=== PATIENT | male | born 1970 | race Caucasian/White ===

== ENCOUNTER 2024-03-30 14:31 | Outpatient (AMB) | payer OTHER, SELFPAY ==
--- NOTE | 2024-03-30 14:35 | HO.NEPHOV ---
Vital Signs 03/30/24 14:42 Height 5 ft 7.5 in Weight 314 lb 4 oz BMI 48.5 BP 114/80 Blood Pressure Location Rt brachial Position Sitting Pulse 95 Pulse Source Pulse Oximeter Pulse Oximetry (%) 97 Oxygen Delivery Method Room Air Intake Visit Reasons: May follow up / Confirmed Advertising Writer Required: No Accompanied by: Self / Same As Patient Allergies No Known Allergies Allergy (Verified 03/30/24 14:48) HPI Comments Details: I had the pleasure of seeing Isreal in follow up of his hypertension. In the past he had uncontrolled BP confirmed by a 24 hour BP monitor and was started on Chlorthalidone. His BP was better controlled on it & was tolerating the medications without any significant side effects. He has been on lexapro which has helped him. He denies any chest pain, SOB, PND, orthopnea, urinary symptoms or edema. He is on Ozempic now for weight loss. There were no other new complaints at the time of this office visit [facility] Medical History (Updated 03/30/24 @ 14:49 by Christal Mckeon MA) Hypertension Surgical History (Updated 03/30/24 @ 14:49 by Christal Mckeon MA) History of hernia repair Family History (Updated 03/30/24 @ 14:50 by Christal Mckeon MA) Father Cancer Mother Hypertension Social History Alcohol intake: current Comment: Rare Patient Tobacco Use Status: Never used Tobacco Physical Exam Const General: comfortable and no acute distress Orientation/consciousness: patient oriented x3 HEENT Head: Yes normocephalic Mouth: Normal oral and palatal mucosa present Eyes EOM: EOMs intact bilaterally Neck Neck: Yes supple Resp Auscultation: clear to auscultation bilaterally Cardio Jugular venous distension: no JVD Rate: regular rate GI Palpation (GI): Soft to palpation Auscultation: normal bowel sounds General: Yes no CVA tenderness Back/Spine/Pelvis Back: no CVA tenderness Skin General skin exam: no rashes or lesions noted Neuro General: patient oriented x3 and moves all extremities Extrem General: Yes no pedal edema Results Reviewed Nephrology Results: No Data to Display Assessment & Plan Assessment & Plan (1) Hypertension: Code(s): I10 - Essential (primary) hypertension Category: Medical Qualifiers: Hypertension type: primary hypertension Qualified Code(s): I10 - Essential (primary) hypertension Plan: Isreal has primary hypertension . It was confirmed by 24 hour BPM. He does not check his BP regularly at home. He has symptoms of PHILL which is better now. He does not consume excess alcohol. He has no H/O LVH, retinopathy, renal dysfunction or proteinuria. He should continue current dose of his anti hypertensive medication. I did not make any medication changes today. Follow up blood work ordered. Answered all questions Orders: Orders Creatinine Today I10 - Essential (primary) hypertension Electrolytes Today I10 - Essential (primary) hypertension Protein Creatinine Ratio, Ur Today I10 - Essential (primary) hypertension Blood Urea Nitrogen Today I10 - Essential (primary) hypertension Calcium Today I10 - Essential (primary) hypertension Coding Level of Care Code Est Pt Level 4 (01046) Diagnoses Primary hypertension I10 Hypertension type: primary hypertension
[2024-03-30 14:42] VITALS: BP 114/80; PULSE 95; O2SAT 97; BMI 48.5
== END 2024-03-30 15:17 | disposition home or self-care (01) ==
PROVIDERS: PCP Internal Medicine; Visit Provider Internal Medicine Nephrology
DX: I10 Essential (primary) hypertension (principal)
CPT/HCPCS: 99214

== ENCOUNTER → 2024-03-30 14:31 | Outpatient (BNVA) | payer OTHER, SELFPAY | PROVIDERS: PCP Internal Medicine; Visit Provider Internal Medicine Nephrology ==

== ENCOUNTER 2024-09-28 14:41 | Outpatient (AMB) | payer OTHER, SELFPAY ==
--- NOTE | 2024-09-28 14:45 | HO.NEPHOV_ITS ---
Vital Signs 09/28/24 14:47 Height 5 ft 7.5 in Weight 322 lb 2 oz BMI 49.7 BP 132/90 H Blood Pressure Location Lt brachial Position Sitting Pulse 95 Pulse Source Pulse Oximeter Pulse Oximetry (%) 95 Oxygen Delivery Method Room Air Intake Visit Reasons: 6 mon follow up-Conf Gaming Associate Required: No Accompanied by: Self / Same As Patient Allergies No Known Allergies Allergy (Verified 09/28/24 14:46) HPI Comments Details: Isreal was seen in follow up of his hypertension. In the past he had uncontrolled BP confirmed by a 24 hour BP monitor and was started on Chlorthalidone. His BP was better controlled on it & was tolerating the medications without any significant side effects. He has been on lexapro which has helped him. He denies any chest pain, SOB, PND, orthopnea, urinary symptoms or edema. He is on Ozempic now for weight loss. There were no other new complaints at the time of this office visit [facility] Medical History (Updated 03/30/24 @ 14:49 by Christal Mckeon MA) Hypertension Surgical History History of hernia repair Family History Father Cancer Mother Hypertension Social History Alcohol intake: current Comment: Rare Patient Tobacco Use Status: Never used Tobacco Review of Systems Const All systems reviewed & are unremarkable except as noted in HPI and below Physical Exam Vital Signs: Last Vital Signs Pulse 95 09/28/24 14:47 BP 132/90 H 09/28/24 14:47 Pulse Ox 95 09/28/24 14:47 Oxygen Delivery Method Room Air 09/28/24 14:47 BMI result Body Mass Index 49.7 Const General: comfortable and no acute distress Orientation/consciousness: patient oriented x3 HEENT Head: Yes normocephalic Mouth: Normal oral and palatal mucosa present Eyes EOM: EOMs intact bilaterally Neck Neck: Yes supple Resp Auscultation: clear to auscultation bilaterally Cardio Jugular venous distension: no JVD Rate: regular rate GI Palpation (GI): Soft to palpation Auscultation: normal bowel sounds General: Yes no CVA tenderness Back/Spine/Pelvis Back: no CVA tenderness Skin General skin exam: no rashes or lesions noted Neuro General: patient oriented x3 and moves all extremities Extrem General: Yes no pedal edema Results Reviewed Nephrology Results: No Data to Display Assessment & Plan Assessment & Plan (1) Hypertension: Code(s): I10 - Essential (primary) hypertension Category: Medical Qualifiers: Hypertension type: primary hypertension Qualified Code(s): I10 - Essential (primary) hypertension Plan Isreal has primary hypertension . It was confirmed by 24 hour BPM. He does not check his BP regularly at home. He has symptoms of PHILL which is better now. He does not consume excess alcohol. He has no H/O LVH, retinopathy, renal dysfunc tion or proteinuria. He should continue current dose of his anti hypertensive medication. I did not make any medication changes today. Follow up blood work ordered. Answered all questions Orders: Orders Protein Creatinine Ratio, Ur 6 Months I10 - Essential (primary) hypertension Creatinine 6 Months I10 - Essential (primary) hypertension Blood Urea Nitrogen 6 Months I10 - Essential (primary) hypertension Electrolytes 6 Months I10 - Essential (primary) hypertension Calcium 6 Months I10 - Essential (primary) hypertension Coding Level of Care Code Est Pt Level 4 (85394) Diagnoses Primary hypertension I10 Hypertension type: primary hypertension
[2024-09-28 14:47] VITALS: BP 132/90; PULSE 95; O2SAT 95; BMI 49.7
== END 2024-09-28 15:41 | disposition home or self-care (01) ==
LOC: HO.HKAS 14:41
PROVIDERS: PCP Internal Medicine; Visit Provider Internal Medicine Nephrology
DX: I10 Essential (primary) hypertension (principal)
CPT/HCPCS: 99214

== ENCOUNTER 2025-05-31 09:59 | Outpatient (AMB) | payer OTHER, SELFPAY ==
[2025-05-31 10:03] VITALS: BP 122/78; PULSE 80; O2SAT 95; BMI 47.2
--- NOTE | 2025-05-31 10:03 | HO.NEPHOV ---
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 In the past he had uncontrolled BP confirmed by a 24 hour BP monitor and was started on Chlorthalidone. His BP was better controlled on it & was tolerating the medications without any significant side effects. He denies any chest pain, SOB, PND, orthopnea, urinary symptoms or edema. There were no other new complaints at the time of this office visit [facility] Medical History (Updated 03/30/24 @ 14:49 by Christal Mckeon MA) Hypertension Surgical History History of hernia repair Family History Father Cancer Mother Hypertension Social History Alcohol intake: current Comment: Rare Patient Tobacco Use Status: Never used Tobacco Review of Systems Const All systems reviewed & are unremarkable except as noted in HPI and below Physical Exam Vital Signs: Last Vital Signs Pulse 80 05/31/25 10:03 BP 122/78 05/31/25 10:03 Pulse Ox 95 05/31/25 10:03 Oxygen Delivery Method Room Air 05/31/25 10:03 BMI result Body Mass Index 47.2 Const General: comfortable and no acute distress Orientation/consciousness: patient oriented x3 HEENT Head: Yes normocephalic Mouth: Normal oral and palatal mucosa present Eyes EOM: EOMs intact bilaterally Neck Neck: Yes supple Resp Auscultation: clear to auscultation bilaterally Cardio Jugular venous distension: no JVD Rate: regular rate GI Palpation (GI): Soft to palpation Auscultation: normal bowel sounds General: Yes no CVA tenderness Back/Spine/Pelvis Back: no CVA tenderness Skin General skin exam: no rashes or lesions noted Neuro General: patient oriented x3 and moves all extremities Extrem General: Yes no pedal edema Assessment & Plan Assessment & Plan (1) Hypertension: Code(s): I10 - Essential (primary) hypertension Category: Medical Qualifiers: Hypertension type: primary hypertension Qualified Code(s): I10 - Essential (primary) hypertension Plan Isreal has primary hypertension confirmed by 24 hour BPM. He does not check his BP regularly at home. He has symptoms of PHILL which is better now. He does not consume excess alcohol. He has no H/O LVH, retinopathy, renal dysfunction or proteinuria. He should continue current dose of his anti hypertensive medication. I did not make any medication changes today. Follow up blood work ordered. Answered all questions Orders: Orders Protein Creatinine Ratio, Ur 8 Months I10 - Essential (primary) hypertension Electrolytes 8 Months I10 - Essential (primary) hypertension Calcium 8 Months I10 - Essential (primary) hypertension Creatinine 8 Months I10 - Essential (primary) hypertension Blood Urea Nitrogen 8 Months I10 - Essential (primary) hypertension Medications: New chlorthalidone 25 mg PO DAILY 90 tabs 3RF Coding Level of Care Code Est Pt Level 4 (94760) Diagnoses Primary hypertension I10 Hypertension type: primary hypertension
--- OUTSIDE RECORDS SUMMARY | 2025-05-31 10:38 | XMS_ITS | Patient Health Record ---
[facility] Address [address] [place] [address] Care Team Providers Care Reflesher Name Role Phone Randall Bob MD Primary Care Provider Unavail able Black, Mary Unavailable [phone] Allergies Allergen (clinical drug ingredient) Drug/Non Drug Allergy documented on EMR Reaction Allergy Type Onset Date Status apple allergenic extract raw apples (uncoded) itchy mouth & throat Allergy Active strawberry allergenic extract strawberries (uncoded) itchy mouth & throat Allergy Active Reason For Referral No Information Medications Medication SIG (Take, Route, Frequency, Duration) Notes Start Date End Date Status Night Splint AFO - L1930 as directed 02/21/2019 Active Fiorinal 50-325-40 MG 1 capsule as neede d Orally every 4 hrs 02/20/2019 Active Social History Tobacco Use: Social History Observation Description Date Details (start date - stop date) Never Smoker NA - NA Tobacco Use/Smoking Question Answer Notes Are you a: nonsmoker Additional Findings: Tobacco Non-User Current no n-smoker Alcohol Screen Question Answer Notes Did you have a drink contain ing alcohol in the past year? Yes How often did you have a dri nk containing alcohol in the past year? Monthly or less (1 point) How many drinks did you have on a typical day when you were drinking in the past year? 1 or 2 drinks (0 point) How often did you have 6 or more drinks on one occasion in the past year? Never (0 point) Points 1 Interpretation Negative Tobacco use other than smoking: Question Answer Notes Are you an other tobacco user? No Problems No Known Problems Plan Of Treatment No Information Insurance Providers Payer Name Payer Address Payer Phone Subscriber Number Group Number Insured Name Patient Relationship to Insured Coverage Start Date Coverage End Date [facility] ([facility]) [address] [place] [id number] Shashi Merino Self - patient is the insured Medical (General) History Medical History History ICD Code Migraines Surgical History Surgery Date(Month/Year) hernia 11/2016
--- OUTSIDE RECORDS SUMMARY | 2025-05-31 10:38 | XMS_ITS | Clinical Summary ---
Author Organization [employer] [facility] Address [address] [place] [address] Care Team Providers Care Green Pipefitter Name Role Phone Unknown, Primary Care Provider Unavailabl e Social History Tobacco Use Types Packs/Day Years Used Date Smoking Tobacco: Never Assessed Sex and Gender Information Value Date Recorded Sex Assigned at Not on file Gender Identity Not on file Sexual Orientation Not on file Job Start Date Occupation Industry Not on file Not on file Not on file Plan of Treatment Health Maintenance Due Date Last Done Comments Hepatitis B Vaccines (1 of 3 - 3-dose series) 1969 Hepatitis C Screening 1969 COVID-19 Vaccine (#1) 03/25/1970 Depression Screening 1981 Preventative Health Evaluation 1987 DTap / Tdap / Td (1 - Tdap) 1988 Colon Cancer Screening (Colonoscopy) 2014 Shingrix-Zoster Vaccine (1 of 2) 2019 Influenza Vaccine (#1) 2025 Pneumococcal Vaccine Aged Out No long er eligible based on patient's age to complete this topic RSV Ped < 20 months Aged Out No longe r eligible based on patient's age to complete this topic Care Teams Green Pipefitter Relationship Specialty Start Date End Date Unknown, PCP - General 04/14/24
--- OUTSIDE RECORDS SUMMARY | 2025-05-31 10:38 | XMS_ITS | Clinical Summary ---
Author Organization [facility] Address [address] [facility] [address] [place] [address] Phone Care Team Providers Care Supply Chain Vice President Name Role Phone Randall Bob MD Primary Care Provider Allergies No known active allergies Medications Butalbital-APAP -Caffeine 50-300-40 MG capsule Take 1 capsule by mouth 1 (one) time each day Active escitalopram (LEXAPRO) 10 MG tablet Take 10 mg by mouth 1 (one) time each day 03/14/2023 Active chlorthalidone 25 MG tablet TAKE 1 TABLET BY MOUTH EVERY DAY 90 tablet 3 06/05/2024 Active Active Problems Problem Noted Date Diagnosed Date Hypertension 02/12/2022 Essential hypertension 03/19/2021 Family History Medical History Relation Comments Heart disease Father CABG Hypertension Father Hypertension Mother Relation Status Comments Father Mother Alive Social History Tobacco Use Types Packs/Day Years Used Date Smoking Tobacco: Never Smokeless Tobacco: Never Tobacco Cessation:Counseling Given: Not Answered Alcohol Use Standard Drinks/Week Comments No 0 (1 standard drink = 0.6 oz pur e alcohol) Sex and Gender Information Value Date Recorded Sex Assigned at Not on file Legal Sex Male 4:56 PM EST Gender Identity Not on file Sexual Orientation Not on file Last Filed Vital Signs Vital Sign Reading Time Taken Comments Blood Pressure 130/88 04/20/2023 3:53 PM EDT Pulse 103 02/12/2022 4:07 PM EDT Temperature - - Respiratory Rate - - Oxygen Saturation 97% 05/06/2021 1:38 PM EDT Inhaled Oxygen Concentration - - Weight 149 kg (329 lb) 04/20/2023 3:53 PM EDT Height 172.7 cm (5' 8 ) 03/11/2020 12:00 PM EDT Body Mass Index 50.02 03/11/2020 12:00 PM EDT Plan of Treatment Health Maintenance Due Date Last Done Comments Hepatitis B Vaccine (1 of 3 - 19+ 3-dose series) 09/25 Pneumococcal Vaccine: 50+ Years (1 of 2 - PCV) 988 Colorectal Cancer Screening: Annual FOBT 2018 Colorectal Cancer Screening: Colonoscopy 2018 Colorectal Cancer Screening: Sigmoidoscopy 2018 Influenza Vaccine (#1) 2025 Insurance [employer] Care Teams Supply Chain Vice President Relationship Specialty Start Date End Date Randall Bob MD [address] [facility] [place] [address] PCP - General 12/02/20
--- OUTSIDE RECORDS SUMMARY | 2025-05-31 10:38 | XMS_ITS | Clinical Summary ---
Author Organization [facility] Address [address] [place] [address] Phone Care Team Providers Care Wildlife Rehabilitator Name Role Phone Randall Bob MD Primary Care Provider [phone] Allergies Active Allergy Reactions Criticality Noted Date Comments Apple Hypersensitivity Low 09/29/2024 States mild tongue itching Ogema Itching Low 09/29/2024 Medications butalbital-acet aminophen-caffe ine 50-300-40 mg capsule Take 1 capsule by mouth 1 (one) time each day. Active chlorthalidone (HYGROTON) 25 mg tablet Take 1 tablet (25 mg total) by mouth 1 (one) time each day. 06/05/2024 Active escitalopram (LEXAPRO) 20 mg tablet Take 1 tablet (20 mg total) by mouth 1 (one) time each day. 07/10/2024 Active rosuvastatin (CRESTOR) 10 mg tablet Take 1 tablet (10 mg total) by mouth 1 (one) time each day. Active Active Problems Problem Noted Date Diagnosed Date Ventral hernia without obstruction or gangrene 1 11/29/2023 Surgical History Surgery Date Site/Laterality Comments HERNIA REPAIR Medical History Medical History Date Comments Depression Hypertension Hyperlipidemia Social History Tobacco Use Types Packs/Day Years Used Date Smoking Tobacco: Never Smokeless Tobacco: Never Tobacco Cessation:Counseling Given: Not Answered Alcohol Use Standard Drinks/Week Comments Yes 0 (1 standard drink = 0.6 oz pur e alcohol) Interpersonal Safety Answer Date Record ed Physical Abuse 12/11/2024 Verbal Abuse 12/11/2024 Sex and Gender Information Value Date Recorded Sex Assigned at Male 12/11/2024 10:08 AM EST Legal Sex Male 2:42 AM EST Gender Identity Male 12/11/2024 10:08 AM EST Sexual Orientation Straight 12/11/2024 10 :08 AM EST Obstetrics History Last Filed Vital Signs Vital Sign Reading Time Taken Comments Blood Pressure 138/86 01/12/2025 8:01 AM EST Pulse 86 01/12/2025 8:01 AM EST Temperature 36.2 C (97.1 F) 01/12/2025 8:01 AM EST Respiratory Rate 14 12/11/2024 3:08 PM EST Oxygen Saturation 94% 12/11/2024 3:10 PM EST Inhaled Oxygen Concentration - - Weight 147 kg (325 lb) 01/12/2025 8:01 AM EST Height 170.2 cm (5' 7 ) 01/12/2025 8:01 AM EST Body Mass Index 50.9 01/12/2025 8:01 AM EST Plan of Treatment Health Maintenance Due Date Last Done Comments DTaP,Tdap,and Td Vaccines (1 - Tdap) 1988 Hepatitis B Vaccines (1 of 3 - 19+ 3-dose series) 1988 Pneumococcal Vaccine: 50+ Years (1 of 1 - PCV) 2019 Zoster Vaccines (1 of 2) 2019 Cholesterol Screening (Lipid Panel) 06/20/2024 Depression Screening 06/20/2024 HIV Screening 06/20/2024 Hepatitis C Screening 06/20/2024 Social Influencers of Health Screening 06/20/2024 COVID-19 Vaccine (3 - 2023-2 5 season) 2024 12/31/2020, 12/03/2020 Hypertension/CHF/CAD Annual BMP Blood Test 09/29/2024 Influenza Vaccine (#1) 2025 Colorectal Cancer Screening: Colonoscopy 12/01/2034 12/01/2024 HIB Vaccines Aged Out No longer eligi ble based on patient's age to complete this topic HPV Vaccines Aged Out No longer eligi ble based on patient's age to complete this topic Hepatitis A Vaccines Aged Out No long er eligible based on patient's age to complete this topic IPV Vaccines Aged Out No longer eligi ble based on patient's age to complete this topic MMR Vaccines Aged Out No longer eligi ble based on patient's age to complete this topic Meningococcal ACWY Vaccine Aged Out N o longer eligible based on patient's age to complete this topic Meningococcal B Vaccine Aged Out No l onger eligible based on patient's age to complete this topic RSV Immunization Patients Under 20 months Aged Out No longer eligible b ased on patient's age to complete this topic Varicella Vaccines Aged Out No longer eligible based on patient's age to complete this topic Medical Devices Implanted Type Area Senior Quality Technician Device Identifier Shelf Expiration Date Model / Serial / Lot Fixation Sorbfx Enhanc 30 Fast Sorbafix For Laproscopy - Sna - [id number] Implanted:Qty: 1 on 12/11/2024 by Kartik Mcgregor MD at [facility] Internal and External Fixation N/A: Abdomen CR BARD - DAVOL DIV 03/19/2026 [id number] / NA / [id number] Mesh Surg [address] [employer]f - Sna - [id number] Implanted:Qty: 1 on 12/11/2024 by Kartik Mcgregor MD at [facility] Surgical Mesh Sling Implants N/A: Abdomen CR BARD - DAVOL DIV 05/19/2026 [id number] / NA / [id number] Procedures Procedure Name Priority Date/Time Associated Diagnosis Comments COLONOSCOPY Routine 12/01/2024 1:02 PM EST Personal history of other colon polyps Family history of colon cancer from Last 3 Months or Most Recently Relevant to Health Maintenance Results * COLONOSCOPY Anesthesia - MAC; [facility] ENDOSCOPY (12/01/2024 1:02 PM EST) Anatomical Region Laterality Modality Other 12/01/2024 12:4 0 PM EST Impressions 12/01/2024 1:03 PM EST - Three 4 to 7 mm polyps in the transverse colon and in the ascending colon, removed with a cold snare. Resected and retrieved. - Diverticulosis in the left colon. - The examination was otherwise normal on direct and retroflexion views. Recommendation: - Patient has a contact number available for emergencies. The signs and symptoms of potential delayed complications were discussed with the patient. Return to normal activities tomorrow. Written discharge instructions were provided to the patient. - Resume previous diet. - Continue present medications. - Await pathology results. - Repeat colonoscopy in 3 - 5 years for surveillance. Narrative 12/01/2024 1:03 PM EST [facility] GI Patient Name: Shashi Merino Procedure Date: 12/01/2024 12:40 PM Date of : 1970 Age: 54 Gender: Male Note Status: Finalized Attending MD: Avinash Bella MD, Procedure Date No Time: 12/01/2024 Procedure: Colonoscopy Indications: High risk colon cancer surveillance: Personal history of colonic polyps Providers: Avinash Bella MD Referring MD: Avinash Bella MD Medicines: Monitored Anesthesia Care Complications: No immediate complications. Estimated Blood Loss: Estimated blood loss: none. Procedure: After I obtained informed consent, the scope was passed under direct vision. Throughout the procedure, the patient's blood pressure, pulse, and oxygen saturations were monitored continuously. The Colonoscope was introduced through the anus and advanced to the cecum, identified by appendiceal orifice and ileocecal valve. The colonoscopy was performed without difficulty. The patient tolerated the procedure well. The quality of the bowel preparation was adequate. Findings: Three sessile polyps were found in the transverse colon and ascending colon. The polyps were 4 to 7 mm in size. These polyps were removed with a cold snare. Resection and retrieval were complete. Multiple medium-mouthed diverticula were found in the left colon. The exam was otherwise without abnormality on direct and retroflexion views. Procedure Code(s): --- Professional --- 85568, Colonoscopy, flexible; with removal of tumor(s), polyp(s), or other lesion(s) by snare technique Diagnosis Code(s): --- Professional --- Z86.010, Personal history of colonic polyps D12.3, Benign neoplasm of transverse colon (hepatic flexure or splenic flexure) D12.2, Benign neoplasm of ascending colon K57.30, Diverticulosis of large intestine without perforation or abscess without bleeding CPT copyright 2020 [employer]. All rights reserved. The codes documented in this report are preliminary and upon property insurance claims examiner review may be revised to meet current compliance requirements. MD Avinash Recio MD 12/01/2024 1:03:00 PM This report has been signed electronically.Avinash Bella MD Number of Addenda: 0 Note Initiated On: 12/01/2024 12:40 PM Scope In: Scope Out: Endoscopy Department at [facility] - [address] [place] [id number] Procedure Note Avinash Bella MD - 12/01/2024 [facility] GI Patient Name: Shashi Merino Procedure Date: 12/01/2024 12:40 PM Date of : 1970 Age: 54 Gender: Male Note Status: Finalized Attending MD: Avinash Bella MD, Procedure Date No Time: 12/01/2024 Procedure: Colonoscopy Indications: High risk colon cancer surveillance: Personalhistory of colonic polyps Providers: Avinash Bella MD Referring MD: Avinash Bella MD Medicines: Monitored Anesthesia Care Complications: No immediate complications. Estimated Blood Loss: Estimated blood loss: none. Procedure: After I obtained informed consent, the scope was passed under direct vision. Throughout theprocedure, the patient's blood pressure, pulse, and oxygen saturations were monitored continuously. The Colonoscope was introduced through the anus and advanced to the cecum, identified by appendiceal orifice and ileocecal valve. The colonoscopy was performed without difficulty. The patient tolerated the procedure well. The quality of the bowel preparation was adequate. Findings: Three sessile polyps were found in the transverse colon and ascending colon. The polyps were 4 to 7mm in size. These polyps were removed with a coldsnare. Resection and retrieval were complete. Multiple medium-mouthed diverticula were found inthe left colon. The exam was otherwise without abnormality ondirect and retroflexion views. Procedure Code(s): --- Professional --- 90516, Colonoscopy, flexible; with removal of tumor(s), polyp(s), or other lesion(s) by snare technique Diagnosis Code(s): --- Professional --- Z86.010, Personal history of colonic polyps D12.3, Benign neoplasm of transverse colon (hepatic flexure or splenic flexure) D12.2, Benign neoplasm of ascending colon K57.30, Diverticulosis of large intestine without perforation or abscess without bleeding CPT copyright 2020 [employer]. All rights reserved. The codes documented in this report are preliminary and upon property insurance claims examiner reviewmay be revised to meet current compliance requirements. MD Avinash Recio MD 12/01/2024 1:03:00 PM This report has been signed electronically.Avinash Bella MD Number of Addenda: 0 Note Initiated On: 12/01/2024 12:40 PM Scope In: Scope Out: Endoscopy Department at [facility] - [address] [place] [id number] IMPRESSION: - Three 4 to 7 mm polyps in the transverse colon and in the ascending colon, removed with a cold snare. Resected and retrieved. - Diverticulosis in the left colon. - The examination was otherwise normal on directand retroflexion views. Recommendation: - Patient has a contact number available for emergencies. The signs and symptoms of potential delayed complications were discussed with thepatient. Return to normal activities tomorrow. Written discharge instructions were provided to thepatient. - Resume previous diet. - Continue present medications. - Await pathology results. - Repeat colonoscopy in 3 - 5 years forsurveillance. Avinash Bella MD GI~PROCEDURE ORDERABLES Final R esult from Last 3 Months or Most Recently Relevant to Health Maintenance Insurance [facility] Advance Directives * Full Code - Default (Latest Code Status on File) Date Activated Date Inactivated Comments 12/11/2024 10:26 AM 12/11/2024 7:51 PM This is ord er is used when code status has not been discussed with the patient, or code status is otherwise unknown/unconfirmed To update the patient's code status, place a code status order. Do not modify or discontinue any currently active code status orders. Care Teams Wildlife Rehabilitator Relationship Specialty Start Date End Date Randall Bob MD [address] [place] [address] PCP - General Internal Medicine 09/29/24
== END 2025-05-31 10:53 | disposition home or self-care (01) ==
LOC: HO.HKAS 10:00
PROVIDERS: PCP Internal Medicine; Visit Provider Internal Medicine Nephrology
DX: I10 Essential (primary) hypertension (principal)
CPT/HCPCS: 99214